=== PATIENT | male | born 1950 | race Caucasian/White ===

== ENCOUNTER 2025-05-22 09:00 | Day surgery (SDC) | payer MEDICARE, BC ==
[2025-05-22] MEDS ORDERED: fentaNYL 50 MCG/ML SDV ONE (09:22)
[2025-05-22] MEDS ORDERED: Propofol 200 MG/20 ML SDV ONE (09:22)
[2025-05-22] MEDS: Lactated Ringers 1,000 ML IV SCH (09:38)
[2025-05-22 11:21] VITALS: PULSE 55
[2025-05-22 11:38] VITALS: BP 142/68
== END 2025-05-22 11:46 | disposition home or self-care (01) ==
LOC: JP.SDS 09:00
PROVIDERS: ATTEND Surgery
DX: Z12.11 Encounter for screening for malignant neoplasm of colon (principal); I10 Essential (primary) hypertension; E11.9 Type 2 diabetes mellitus without complications
CPT/HCPCS: G0121; J2704; J3010; J7120; 00812-QZ